=== PATIENT | male | born 1955 | race Caucasian/White ===

== ENCOUNTER 2023-02-12 09:43 | Emergency (ER) | payer MEDICARE, OTHER ==
[2023-02-12 10:17] VITALS: BP 157/82
[2023-02-12 11:30] VITALS: PULSE 67
== END 2023-02-12 11:29 | disposition home or self-care (01) ==
LOC: JD.ED 09:43
DX: M75.22 Bicipital tendinitis, left shoulder (principal); I10 Essential (primary) hypertension; F17.210 Nicotine dependence, cigarettes, uncomplicated; Z79.899 Other long term (current) drug therapy
CPT/HCPCS: 73030-26-LT; 73030-LT; 93005; 93010; 99283